=== PATIENT | male | born 1990 | race American Indian/Alaskan Native ===

== ENCOUNTER 2017-12-05 22:00 | Emergency (ER) | payer SELFPAY ==
--- NOTE | 2017-12-05 22:29 | C.PDOC ---
History Of Present Illness <Sixto Herring - Last Filed: 12/06/17 06:27> <Kwaku Teran M - Last Filed: 12/06/17 08:00> 27 year old male is brought to the ED by EMS for reported substance abuse. Patient states he smoked "synthetic marijuana" today. upon assesemtn pt presents with bizzare behavior. Patient denies SI,HI, hallucinations, other medical complaints. (Sixto Herring) History Per: Patient History/Exam Limitations: intoxication Onset/Duration Of Symptoms: Hrs Current Symptoms Are (Timing): Still Present Suicide/Self Injury Attempted (Context): None Modifying Factor(s): Marijuana (synthetic) Associated Symptoms: denies: Depression, Suicidal Thoughts, Suicidal Plan Involuntary Hold By: None Recent travel outside of the [place]: No Additional History Per: Patient <Sixto Herring - Last Filed: 12/06/17 06:27> <Shalom Teranpson M - Last Filed: 12/06/17 08:00> Time Seen by Provider: 12/05/17 22:12 Chief Complaint (Nursing): Substance Abuse Past Medical History Reviewed: Historical Data, Nursing Documentation, Vital Signs - Medical History PMH: No Chronic Diseases Surgical History: No Surg Hx Family History: States: Unknown Family Hx - Social History Hx Alcohol Use: Yes Hx Substance Use: Yes <Sixto Herring - Last Filed: 12/06/17 06:27> Vital Signs: Last Vital Signs Temp 98.4 F 12/06/17 07:21 Pulse 64 12/06/17 07:21 Resp 18 12/06/17 07:21 BP 129/81 12/06/17 07:21 Pulse Ox 100 12/06/17 07:21 Review Of Systems Except As Marked, All Systems Reviewed And Found Negative. Psych: Negative for: Depression, Suicidal ideation <Sixto Herring - Last Filed: 12/06/17 06:27> Physical Exam - Physical Exam Appears: Non-toxic, No Acute Distress Skin: Normal Color, Warm, Dry Head: Atraumatic, Normacephalic Eye(s): bilateral: Normal Inspection Neck: Normal ROM, Supple Chest: Symmetrical Cardiovascular: Rhythm Regular Respiratory: Normal Breath Sounds, No Rales, No Rhonchi, No Wheezing Gastrointestinal/Abdominal: Soft, No Tenderness, No Guarding, No Rebound Extremity: Normal ROM, No Tenderness, No Swelling Neurological/Psych: Oriented x3, Normal Speech Gait: Steady <Sixto Herring - Last Filed: 12/06/17 06:27> ED Course And Treatment - Laboratory Results Result Diagrams: 12/06/17 01:17 12/06/17 01:17 O2 Sat by Pulse Oximetry: 98 (ON RA) Pulse Ox Interpretation: Normal <Sixto Herring - Last Filed: 12/06/17 06:27> - Laboratory Results Result Diagrams: 12/06/17 01:17 12/06/17 01:17 <Kwaku Teran - Last Filed: 12/06/17 08:00> Medical Decision Making <Sixto Herring - Last Filed: 12/06/17 06:27> <Kwaku Teran - Last Filed: 12/06/17 08:00> Medical Decision Making: suspect toxidrome vs pyschosis. labs imaging pending during ed course, pt persistently bizzare behavior after 5 hours observation. crisis notified for eval. 03:47 - Seen by production line worker, advised to reassess in the morning 700: case endorsed to day shift, pending crisis reeval. (Sixto Herring) 757 am - received patient in s/o pending crisis evaluation. Patient seen by crisis and okay to discharge home. Pateint is a x o x 3 at this time and stable for discharge home. (Kwaku Teran) Disposition <Sixto Herring - Last Filed: 12/06/17 06:27> Counseled Patient/Family Regarding: Studies Performed, Diagnosis, Need For Followup - Disposition Disposition Time: 07:57 <Kwaku Teran - Last Filed: 12/06/17 08:00> - Disposition Disposition: HOME/ ROUTINE Condition: STABLE Additional Instructions: follow up with outpatient referral as discussed within 2 days call to make an appointment return to ER immediately if symptoms worsens or progress Instructions: Marijuana Use and Addiction (DC) Forms: [facility] (Kinyarwanda), General Discharge Instructions - Clinical Impression Clinical Impression: Substance abuse or dependence - Scribe Statement The provider has reviewed the documentation as recorded by the Scribe <Sixto Herring - Last Filed: 12/06/17 06:27> <Kwaku Teran - Last Filed: 12/06/17 08:00> - Scribe Statement Wai Culp All medical record entries made by the Scribe were at my direction and personally dictated by me. I have reviewed the chart and agree that the record accurately reflects my personal performance of the history, physical exam, medical decision making, and the department course for this patient. I have also personally directed, reviewed, and agree with the discharge instructions and disposition. (Sixto Herring)
[2017-12-05 23:59] LABS: BARBITURATES, UR NEGATIVE (NEGATIVE); BENZODIAZEPINES, UR NEGATIVE (NEGATIVE); OPIATES, UR NEGATIVE (NEGATIVE); PHENCYCLIDINE, UR NEGATIVE (NEGATIVE)
[2017-12-06 01:24] LABS: BASO % 0.6 % (0.0-2.0); EOS % 0.2 % (0.0-4.0); HEMOGLOBIN 14.2 g/dL (12.0-18.0); LYMPH # 1.8 K/uL (1.0-4.3); MEAN CELL VOLUME 101.9 fL (80.0-94.0); MEAN CORPUSCULAR HEMOGLOBIN 34.6 pg (27.0-31.0); MEAN PLATELET VOLUME 8.7 fL (7.2-11.7); MONO # 0.7 K/uL (0.0-0.8); MONO % 8.9 % (0.0-10.0); NEUT # 4.8 K/uL (1.8-7.0); NEUT % 65.3 % (50.0-75.0); RBC 4.09 Mil/uL (4.40-5.90); RED CELL DISTRIBUTION WIDTH 12.5 % (11.5-14.5); WHITE BLOOD COUNT 7.3 K/uL (4.8-10.8)
[2017-12-06 01:27] LABS: URINE BILIRUBIN NEGATIVE (NEGATIVE); URINE BLOOD NEGATIVE (NEGATIVE); URINE CLARITY Clear (Clear); URINE COLOR Amber (YELLOW); URINE GLUCOSE (UA) NORMAL (Normal); URINE HYALINE CAST 0-2 /lpf (0-2); URINE LEUKOCYTE ESTERASE NEG Leu/uL (Negative); URINE PROTEIN 2+ mg/dL (NEGATIVE)
[2017-12-06 01:34] LABS: ACETAMINOPHEN < 10.0 ug/mL (10.0-30.0); SALICYLATE < 1.0 mg/dL 1
[2017-12-06 01:36] LABS: ALB/GLOB RATIO 1.6 (1.0-2.1); ALBUMIN 5.1 g/dL (3.5-5.0); CALCIUM 9.7 mg/dl (8.6-10.4); GFR NON-AFRICAN AMERICAN > 60
[2017-12-06 02:14] LABS: ALT/SGPT 19 U/L (21-72); AST/SGOT 39 U/L (17-59); BLOOD UREA NITROGEN 10 mg/dL (9-20)
[2017-12-06 07:21] VITALS: BP 129/81; PULSE 64; RESP 18; TEMP 98.4; O2SAT 100
== END 2017-12-06 08:05 | disposition home or self-care (01) ==
LOC: C.ER 22:00
DX: F19.20 Other psychoactive substance dependence, uncomplicated (principal)
CPT/HCPCS: 80053; 81001; 82948; 85025; 99285; G0480